=== PATIENT | female | born 1945 | race African-American/Black ===

== ENCOUNTER 2017-07-06 09:35 | Emergency (ER) | payer MEDICARE, OTHER ==
[2017-07-06 09:58] VITALS: RESP 18
--- NOTE | 2017-07-06 11:27 | ED ---
General Adult HPI - General Chief complaint: GI Bleed Stated complaint: Hemrroids Time Seen by Provider: 07/06/17 11:15 Source: patient, RN notes reviewed, old records reviewed Mode of arrival: ambulatory Limitations: no limitations - History of Present Illness Initial comments: This is a 72-year-old female the ER for evaluation pain, anal pain. History of hemorrhoids. Patient states she has worsening hemorrhage today. No treatment at home. Patient denies any abdominal pain. No significant bleeding. Patient here for evaluation regarding hemorrhoids - Related Data Previous Rx's Medication Instructions Recorded Albuterol Inhaler [Ventolin Hfa 1 - 2 puff INHALATION Q4-6H PRN #1 09/24/13 Inhaler] inhaler Albuterol Inhaler [Ventolin Hfa 2 puff INHALATION Q4HR PRN #1 02/03/15 Inhaler] inhaler Allergies Allergy/AdvReac Type Severity Reaction Status Date / Time No Known Allergies Allergy Verified 07/06/17 09:58 Review of Systems ROS Statement: Those systems with pertinent positive or pertinent negative responses have been documented in the HPI. ROS Other: All systems not noted in ROS Statement are negative. Past Medical History Past Medical History: GERD/Reflux Additional Past Medical History / Comment(s): dry eyes History of Any Multi-Drug Resistant Organisms: None Reported Past Surgical History: Hysterectomy, Tubal Ligation Past Psychological History: No Psychological Hx Reported Smoking Status: Former smoker Past Alcohol Use History: None Reported Past Drug Use History: None Reported General Exam - General Exam Comments Initial Comments: 2 nonthrombosed hemorrhoids Limitations: no limitations General appearance: alert, in no apparent distress Head exam: Present: atraumatic, normocephalic, normal inspection Eye exam: Present: normal appearance, PERRL, EOMI. Absent: scleral icterus, conjunctival injection, periorbital swelling ENT exam: Present: normal exam, mucous membranes moist Neck exam: Present: normal inspection. Absent: tenderness, meningismus, lymphadenopathy Respiratory exam: Present: normal lung sounds bilaterally. Absent: respiratory distress, wheezes, rales, rhonchi, stridor Cardiovascular Exam: Present: regular rate, normal rhythm, normal heart sounds. Absent: systolic murmur, diastolic murmur, rubs, gallop, clicks GI/Abdominal exam: Present: soft, normal bowel sounds. Absent: distended, tenderness, guarding, rebound, rigid Extremities exam: Present: normal inspection, full ROM, normal capillary refill. Absent: tenderness, pedal edema, joint swelling, calf tenderness Back exam: Present: normal inspection Neurological exam: Present: alert, oriented X3, CN II-XII intact Psychiatric exam: Present: normal affect, normal mood Skin exam: Present: warm, dry, intact, normal color. Absent: rash Course Vital Signs 07/06/17 09:55 Temperature 97 F L Pulse Rate 94 Respiratory 18 Rate Blood Pressure 151/91 O2 Sat by Pulse 100 Oximetry - Reevaluation(s) Reevaluation #1: 07/06/17 11:56 Local patient regarding treatment of hemorrhoids, patient is okay with therapy and treatment Medical Decision Making - Medical Decision Making 72 female be given symptomatic treatment for hemorrhoids, follow-up with primary care. Patient given laxative, pain control, Disposition Clinical Impression: Hemorrhoids Disposition: HOME SELF-CARE Condition: Good Instructions: Hemorrhoids (ED) Referrals: Bolivar Rangel DO [Primary Care Provider] - 1-2 days
[2017-07-06 12:28] VITALS: BP 144/87; PULSE 96; TEMP 97.2
== END 2017-07-06 12:28 | disposition home or self-care (01) ==
LOC: EC 09:35
DX: K64.9 Unspecified hemorrhoids (principal); Z87.891 Personal history of nicotine dependence; Z98.51 Tubal ligation status; Z90.710 Acquired absence of both cervix and uterus
CPT/HCPCS: 99285

== ENCOUNTER 2017-08-18 11:15 | Emergency (ER) | payer MEDICARE, OTHER ==
[2017-08-18 11:19] VITALS: RESP 20; TEMP 97.8
--- NOTE | 2017-08-18 11:56 | ED ---
Recheck HPI - General Chief Complaint: Recheck/Abnormal Lab/Rx Stated Complaint: MED REFILL Time Seen by Provider: 08/18/17 11:37 Source: patient, RN notes reviewed Mode of arrival: ambulatory Limitations: no limitations - History of Present Illness Initial Comments: 72-year-old female presents to the emergency department for medication refill. Patient states that she occasionally has taken tramadol for pain. She states that she's had 10 tablets since beginning of June states that she just needs a few more. She has no specific complaints. Patient denies any chest pain, shortness of breath, nausea, vomiting diarrhea, constipation, chest pain, headache, dizziness. She states that she does occasionally has aches and pains to her age and she states that she has hemorrhoids or causes discomfort. - Related Data Home Medications Medication Instructions Recorded Confirmed Azelastine HCl [Optivar 0.05% 1 drop BOTH EYES BID 07/06/17 07/06/17 Ophth Soln] Fluticasone Nasal [place] [Flonase 1 - 2 spr EA NOSTRIL DAILY PRN 07/06/17 Nasal [place]] Previous Rx's Medication Instructions Recorded Hydrocortisone [Anusol-Hc] 1 applic RECTAL BID #1 tube 07/06/17 Polyethylene Glycol 3350 [Miralax] 17 gm PO DAILY #14 packet 07/06/17 traMADol HCL [Ultram] 50 mg PO Q6HR PRN #10 tab 07/06/17 traMADol HCl [Ultram] 50 mg PO Q6H PRN #12 tab 08/18/17 Allergies Allergy/AdvReac Type Severity Reaction Status Date / Time No Known Allergies Allergy Verified 08/18/17 11:20 Review of Systems ROS Statement: Those systems with pertinent positive or pertinent negative responses have been documented in the HPI. ROS Other: All systems not noted in ROS Statement are negative. Past Medical History Past Medical History: GERD/Reflux Additional Past Medical History / Comment(s): dry eyes History of Any Multi-Drug Resistant Organisms: None Reported Past Surgical History: Hysterectomy, Tubal Ligation Past Psychological History: No Psychological Hx Reported Smoking Status: Former smoker Past Alcohol Use History: None Reported Past Drug Use History: None Reported General Exam Limitations: no limitations General appearance: alert, in no apparent distress Head exam: Present: atraumatic, normocephalic, normal inspection Eye exam: Present: normal appearance, PERRL, EOMI. Absent: scleral icterus, conjunctival injection, periorbital swelling ENT exam: Present: normal exam, normal oropharynx, mucous membranes moist Neck exam: Present: normal inspection. Absent: tenderness, meningismus, lymphadenopathy Respiratory exam: Present: normal lung sounds bilaterally. Absent: respiratory distress, wheezes, rales, rhonchi, stridor Cardiovascular Exam: Present: regular rate, normal rhythm, normal heart sounds. Absent: systolic murmur, diastolic murmur, rubs, gallop, clicks GI/Abdominal exam: Present: soft, normal bowel sounds. Absent: distended, tenderness, guarding, rebound, rigid Course Vital Signs 08/18/17 11:17 Temperature 97.8 F Pulse Rate 94 Respiratory 20 Rate Blood Pressure 194/95 O2 Sat by Pulse 100 Oximetry Medical Decision Making - Medical Decision Making 9-year-old female presented for refill of tramadol. She has had 10 tablets filled June. Patient will be given 12 Tablets in the emergency room and discharged. Disposition Clinical Impression: Encounter for medication refill, Hemorrhoids Disposition: HOME SELF-CARE Condition: Stable Instructions: Tramadol (By mouth) Additional Instructions: Please return to the Emergency Department if symptoms worsen or any other concerns. Prescriptions: traMADol HCl [Ultram] 50 mg PO Q6H PRN #12 tab PRN Reason: Pain Is patient prescribed a controlled substance at d/c from ED?: Yes If prescribed controlled substance>3 days was MAPS reviewed?: No When asked, does pt state using other controlled substances?: No Referrals: Bolivar Rangel DO [Primary Care Provider] - 1-2 days Time of Disposition: 11:56
[2017-08-18 12:02] VITALS: BP 142/95; PULSE 96
== END 2017-08-18 12:03 | disposition home or self-care (01) ==
LOC: EC 11:15
DX: Z76.0 Encounter for issue of repeat prescription (principal); K64.9 Unspecified hemorrhoids; Z87.891 Personal history of nicotine dependence; Z79.899 Other long term (current) drug therapy
CPT/HCPCS: 99281

== ENCOUNTER 2017-08-31 09:24 | Emergency (ER) | payer MEDICARE ==
--- NOTE | 2017-08-31 10:29 | ED ---
General Adult HPI - General Chief complaint: Recheck/Abnormal Lab/Rx Stated complaint: Med Refill Time Seen by Provider: 08/31/17 10:07 Source: patient, RN notes reviewed, old records reviewed Mode of arrival: ambulatory Limitations: no limitations - History of Present Illness Initial comments: 72-year-old female presenting for medication refill. She is currently prescribed tramadol which she takes for pain. She also states that those helped improve her urinary frequency. Denies any new pain complaints. Denies fever or chills. Denies nausea or vomiting. Denies chest pain or shortness of breath. She complains urinary frequency and occasional incontinence. She is going out of town and would like this medication refilled. - Related Data Home Medications Medication Instructions Recorded Confirmed Fluticasone Nasal [place] [Flonase 1 - 2 spr EA NOSTRIL DAILY PRN 07/06/17 Nasal [place]] Previous Rx's Medication Instructions Recorded Cephalexin [Keflex] 500 mg PO Q12HR #14 cap 08/31/17 traMADol HCL [Ultram] 50 mg PO Q6HR PRN 3 Days #12 tab 08/31/17 Allergies Allergy/AdvReac Type Severity Reaction Status Date / Time No Known Allergies Allergy Verified 08/31/17 10:46 Review of Systems ROS Statement: Those systems with pertinent positive or pertinent negative responses have been documented in the HPI. ROS Other: All systems not noted in ROS Statement are negative. Past Medical History Past Medical History: GERD/Reflux Additional Past Medical History / Comment(s): dry eyes History of Any Multi-Drug Resistant Organisms: None Reported Past Surgical History: Hysterectomy, Tubal Ligation Past Psychological History: No Psychological Hx Reported Smoking Status: Former smoker Past Alcohol Use History: None Reported Past Drug Use History: None Reported General Exam Limitations: no limitations General appearance: alert, in no apparent distress Head exam: Present: atraumatic, normocephalic Eye exam: Present: normal appearance, PERRL, EOMI ENT exam: Present: normal exam Neck exam: Present: normal inspection. Absent: tenderness, meningismus Respiratory exam: Present: normal lung sounds bilaterally. Absent: respiratory distress Cardiovascular Exam: Present: regular rate, normal rhythm GI/Abdominal exam: Present: soft. Absent: distended, tenderness Extremities exam: Present: normal inspection. Absent: full ROM, tenderness Back exam: Present: normal inspection. Absent: full ROM, tenderness Neurological exam: Present: alert, oriented X3, CN II-XII intact. Absent: motor sensory deficit Psychiatric exam: Present: normal affect, normal mood Skin exam: Present: warm, dry, intact Course Vital Signs 08/31/17 09:53 Temperature 97.6 F Pulse Rate 75 Respiratory 16 Rate Blood Pressure 134/84 O2 Sat by Pulse 98 Oximetry Medical Decision Making - Medical Decision Making 72-year-old female presented for refill of tramadol before she goes out of town. She also did complain of some urinary frequency. Urinalysis is obtained. These results indicate 30 RBCs and 5 white cells. This may represent cystitis with small amount of hemorrhage. Patient has no flank pain. No pelvic pain. But she is complaining of urinary frequency. This will be treated awaiting culture results. Patient's tramadol will also be refilled. - Lab Data Lab Results 08/31/17 Range/Units 10:16 Urine Color Yellow Urine Appearance Clear (Clear) Urine pH 6.0 (5.0-8.0) Ur Specific [place] 1.023 (1.001-1.035) Urine Protein 1+ H (Negative) Urine Glucose (UA) Negative (Negative) Urine Ketones Negative (Negative) Urine Blood Small H (Negative) Urine Nitrite Negative (Negative) Urine Bilirubin Negative (Negative) Urine Urobilinogen 2.0 (<2.0) mg/dL Ur Leukocyte Esterase Small H (Negative) Urine RBC 30 H (0-5) /hpf Urine WBC 5 (0-5) /hpf Ur Squamous Epith Cells <1 (0-4) /hpf Urine Mucus Rare H (None) /hpf Disposition Clinical Impression: Encounter for medication refill, Cystitis Disposition: HOME SELF-CARE Condition: Good Instructions: Urinary Traction Infection in Older Adults (ED) Prescriptions: Cephalexin [Keflex] 500 mg PO Q12HR #14 cap traMADol HCL [Ultram] 50 mg PO Q6HR PRN 3 Days #12 tab PRN Reason: Pain Is patient prescribed a controlled substance at d/c from ED?: No Referrals: Bolivar Rangel DO [Primary Care Provider] - 1-2 days Time of Disposition: 10:55
[2017-08-31 10:46] LABS: Appearance,Urine Clear (Clear); Bilirubin,Urine Negative (Negative); Blood,Urine Small (Negative); Color,Urine Yellow; Glucose,Urine (UA) Negative (Negative); Ketones,Urine Negative (Negative); Leukocyte Esterase,Urine Small (Negative); Mucus,Urine Rare /hpf; Nitrite,Urine Negative (Negative); Protein,Urine 1+ (Negative); RBC,Urine 30 /hpf (0-5); Specific Gravity,Urine 1.023 (1.001-1.035); Squamous Epithelial Cell,Urine <1 /hpf (0-4); WBC,Urine 5 /hpf (0-5)
[2017-08-31 11:26] VITALS: BP 124/78; PULSE 72; RESP 18; TEMP 97.9
== END 2017-08-31 11:16 | disposition home or self-care (01) ==
LOC: EC 09:24
DX: N30.90 Cystitis, unspecified without hematuria (principal); Z76.0 Encounter for issue of repeat prescription; Z87.891 Personal history of nicotine dependence
CPT/HCPCS: 81001; 87086; 99283

== ENCOUNTER 2017-11-17 12:38 | Inpatient (IN) | payer MEDICARE, OTHER ==
--- NOTE | 2017-11-17 13:06 | ED ---
General Adult HPI - General Chief complaint: Psychiatric Symptoms Stated complaint: dementia Time Seen by Provider: 11/17/17 12:51 Source: patient, family, RN notes reviewed, old records reviewed Mode of arrival: wheelchair Limitations: altered mental status - History of Present Illness Initial comments: This is a 72-year-old female the ER for evaluation. Patient's brought in by family for evaluation of altered mental state and possible psychiatric evaluation. Patient suffers unable to give history, patient cannot answer questions appropriately. Per patient's family patient was by herself, has been incontinent of stool not eating not drinking not taking care of her apartment of her house. Patient does live alone. She has no family checking on her. Patient has not seen over a year, not taking any medications on a regular basis. - Related Data Home Medications Medication Instructions Recorded Confirmed No Known Home Medications 11/17/17 11/17/17 Allergies Allergy/AdvReac Type Severity Reaction Status Date / Time No Known Allergies Allergy Verified 11/17/17 14:07 Review of Systems ROS Statement: Those systems with pertinent positive or pertinent negative responses have been documented in the HPI. ROS Other: All systems not noted in ROS Statement are negative. Past Medical History Past Medical History: GERD/Reflux Additional Past Medical History / Comment(s): dry eyes, organic mental disorder History of Any Multi-Drug Resistant Organisms: None Reported Past Surgical History: Hysterectomy, Tubal Ligation Past Psychological History: Depression Smoking Status: Former smoker Past Alcohol Use History: None Reported Past Drug Use History: None Reported General Exam Limitations: altered mental status General appearance: alert, in no apparent distress Head exam: Present: atraumatic, normocephalic, normal inspection Eye exam: Present: normal appearance, PERRL, EOMI. Absent: scleral icterus, conjunctival injection, periorbital swelling ENT exam: Present: normal exam, mucous membranes moist Neck exam: Present: normal inspection. Absent: tenderness, meningismus, lymphadenopathy Respiratory exam: Present: normal lung sounds bilaterally. Absent: respiratory distress, wheezes, rales, rhonchi, stridor Cardiovascular Exam: Present: regular rate, normal rhythm, normal heart sounds. Absent: systolic murmur, diastolic murmur, rubs, gallop, clicks GI/Abdominal exam: Present: soft, normal bowel sounds. Absent: distended, tenderness, guarding, rebound, rigid Extremities exam: Present: normal inspection, full ROM, normal capillary refill. Absent: tenderness, pedal edema, joint swelling, calf tenderness Back exam: Present: normal inspection Neurological exam: Present: alert, oriented X3, CN II-XII intact Psychiatric exam: Present: normal affect, normal mood Skin exam: Present: warm, dry, intact, normal color. Absent: rash Course Vital Signs 11/17/17 11/17/17 12:39 17:27 Temperature 98.3 F 97.1 F L Pulse Rate 91 81 Respiratory 18 15 Rate Blood Pressure 103/71 128/68 O2 Sat by Pulse 99 100 Oximetry - Reevaluation(s) Reevaluation #1: 11/17/17 20:05 Patient is medically clear for psych and seen by psychiatry who states they have no recommendations regarding patient's treatment Reevaluation #2: 11/17/17 20:05 Family again at bedside after long discussion with family, and patient becoming very aggressive with both staff and family patient is given mild local sedation EKG Findings - EKG Comments: EKG Findings:: EKG shows normal sinus rhythm rate of 70, OR 152, QRS 84, QTC 453 Medical Decision Making - Medical Decision Making 72 female the ER with complicated dementia, significant exasperation of severe dementia, unable to take care of herself, patient is living in the house that is not states, and cleaned, patient lives alone. Patient is altered here in the emergency room, unable conversation with patient secondary to severe altered mental state. - Lab Data Result diagrams: 11/17/17 13:30 11/17/17 13:30 Lab Results 11/17/17 11/17/17 11/17/17 Range/Units 13:30 13:30 13:30 WBC 7.9 (3.8-10.6) k/uL RBC 4.47 (3.80-5.40) m/uL Hgb 13.0 (11.4-16.0) gm/dL Hct 36.8 (34.0-46.0) % MCV 82.4 (80.0-100.0) fL MCH 29.0 (25.0-35.0) pg MCHC 35.2 (31.0-37.0) g/dL RDW 13.3 (11.5-15.5) % Plt Count 247 (150-450) k/uL Neutrophils % 66 % Lymphocytes % 24 % Monocytes % 6 % Eosinophils % 2 % Basophils % 0 % Neutrophils # 5.2 (1.3-7.7) k/uL Lymphocytes # 1.9 (1.0-4.8) k/uL Monocytes # 0.4 (0-1.0) k/uL Eosinophils # 0.1 (0-0.7) k/uL Basophils # 0.0 (0-0.2) k/uL PT (9.0-12.0) sec INR (<1.2) Sodium 142 (137-145) mmol/L Potassium 3.8 (3.5-5.1) mmol/L Chloride 105 (98-107) mmol/L Carbon Dioxide 25 (22-30) mmol/L Anion Gap 12 mmol/L BUN 32 H (7-17) mg/dL Creatinine 0.90 (0.52-1.04) mg/dL Est GFR (CKD-EPI)AfAm 75 (>60 ml/min/1.73 sqM) Est GFR (CKD-EPI)NonAf 65 (>60 ml/min/1.73 sqM) Glucose 81 (74-99) mg/dL Calcium 9.6 (8.4-10.2) mg/dL Total Bilirubin 4.8 H (0.2-1.3) mg/dL AST 44 H (14-36) U/L ALT 30 (9-52) U/L Alkaline Phosphatase 45 (38-126) U/L Total Creatine Kinase 587 H (30-135) U/L CK-MB (CK-2) 4.2 H* (0.0-2.4) ng/mL CK-MB (CK-2) Rel Index 0.7 Total Protein 7.3 (6.3-8.2) g/dL Albumin 4.3 (3.5-5.0) g/dL Lipase 233 (23-300) U/L Urine Color Urine Appearance (Clear) Urine pH (5.0-8.0) Ur Specific [place] (1.001-1.035) Urine Protein (Negative) Urine Glucose (UA) (Negative) Urine Ketones (Negative) Urine Blood (Negative) Urine Nitrite (Negative) Urine Bilirubin (Negative) Urine Urobilinogen (<2.0) mg/dL Ur Leukocyte Esterase (Negative) Urine RBC (0-5) /hpf Urine WBC (0-5) /hpf Urine Bacteria (None) /hpf Hyaline Casts (0-2) /lpf Urine Mucus (None) /hpf Salicylates <1.0 mg/dL Urine Opiates Screen (NotDetected) Ur Oxycodone Screen (NotDetected) Urine Methadone Screen (NotDetected) Ur Propoxyphene Screen (NotDetected) Acetaminophen <10.0 ug/mL Ur Barbiturates Screen (NotDetected) Phenytoin <3.0 ug/mL Valproic Acid <10.0 ug/mL Carbamazepine <3.0 ug/mL U Tricyclic Antidepress (NotDetected) Ur Phencyclidine Scrn (NotDetected) Ur Amphetamines Screen (NotDetected) U Methamphetamines Scrn (NotDetected) U Benzodiazepines Scrn (NotDetected) Urine Cocaine Screen (NotDetected) U Marijuana (THC) Screen (NotDetected) Serum Alcohol <10 mg/dL 11/17/17 11/17/17 Range/Units 13:30 15:35 WBC (3.8-10.6) k/uL RBC (3.80-5.40) m/uL Hgb (11.4-16.0) gm/dL Hct (34.0-46.0) % MCV (80.0-100.0) fL MCH (25.0-35.0) pg MCHC (31.0-37.0) g/dL RDW (11.5-15.5) % Plt Count (150-450) k/uL Neutrophils % % Lymphocytes % % Monocytes % % Eosinophils % % Basophils % % Neutrophils # (1.3-7.7) k/uL Lymphocytes # (1.0-4.8) k/uL Monocytes # (0-1.0) k/uL Eosinophils # (0-0.7) k/uL Basophils # (0-0.2) k/uL PT 11.2 (9.0-12.0) sec INR 1.2 H (<1.2) Sodium (137-145) mmol/L Potassium (3.5-5.1) mmol/L Chloride (98-107) mmol/L Carbon Dioxide (22-30) mmol/L Anion Gap mmol/L BUN (7-17) mg/dL Creatinine (0.52-1.04) mg/dL Est GFR (CKD-EPI)AfAm (>60 ml/min/1.73 sqM) Est GFR (CKD-EPI)NonAf (>60 ml/min/1.73 sqM) Glucose (74-99) mg/dL Calcium (8.4-10.2) mg/dL Total Bilirubin (0.2-1.3) mg/dL AST (14-36) U/L ALT (9-52) U/L Alkaline Phosphatase (38-126) U/L Total Creatine Kinase (30-135) U/L CK-MB (CK-2) (0.0-2.4) ng/mL CK-MB (CK-2) Rel Index Total Protein (6.3-8.2) g/dL Albumin (3.5-5.0) g/dL Lipase (23-300) U/L Urine Color [place] Urine Appearance Clear (Clear) Urine pH 5.5 (5.0-8.0) Ur Specific [place] 1.025 (1.001-1.035) Urine Protein 1+ H (Negative) Urine Glucose (UA) Negative (Negative) Urine Ketones 2+ H (Negative) Urine Blood Moderate H (Negative) Urine Nitrite Negative (Negative) Urine Bilirubin 1+ H (Negative) Urine Urobilinogen 4.0 (<2.0) mg/dL Ur Leukocyte Esterase Negative (Negative) Urine RBC 4 (0-5) /hpf Urine WBC 1 (0-5) /hpf Urine Bacteria Rare H (None) /hpf Hyaline Casts 7 H (0-2) /lpf Urine Mucus Rare H (None) /hpf Salicylates mg/dL Urine Opiates Screen Not Detected (NotDetected) Ur Oxycodone Screen Not Detected (NotDetected) Urine Methadone Screen Not Detected (NotDetected) Ur Propoxyphene Screen Not Detected (NotDetected) Acetaminophen ug/mL Ur Barbiturates Screen Not Detected (NotDetected) Phenytoin ug/mL Valproic Acid ug/mL Carbamazepine ug/mL U Tricyclic Antidepress Not Detected (NotDetected) Ur Phencyclidine Scrn Not Detected (NotDetected) Ur Amphetamines Screen Not Detected (NotDetected) U Methamphetamines Scrn Not Detected (NotDetected) U Benzodiazepines Scrn Not Detected (NotDetected) Urine Cocaine Screen Not Detected (NotDetected) U Marijuana (THC) Screen Not Detected (NotDetected) Serum Alcohol mg/dL - Radiology Data Radiology results: report reviewed (CT brain C-spine negative can acute disease , chest x-ray pelvis x-ray negative for traumatic injury), image reviewed Disposition Clinical Impression: Altered mental state, Dehydration, Failure to thrive Disposition: ADMITTED IP TO THIS [facility] Condition: Undetermined Is patient prescribed a controlled substance at d/c from ED?: No Referrals: Bolivar Rangel DO [Primary Care Provider] - 1-2 days
[2017-11-17] MEDS ORDERED: LORazepam 2 MG/ML INJ IV STA ×2 (13:10→19:30)
[2017-11-17] MEDS ORDERED: SODIUM CHLORIDE 0.9% 1,000 ML IV STA (13:10)
[2017-11-17 14:13] LABS: Basophils % (A) 0 %; Eosinophils # (A) 0.1 k/uL (0-0.7); Eosinophils % (A) 2 %; HCT 36.8 % (34.0-46.0); INR 1.2 (<1.2); Lymphocytes # (A) 1.9 k/uL (1.0-4.8); Lymphocytes % (A) 24 %; MCHC 35.2 g/dL (31.0-37.0); MCV 82.4 fL (80.0-100.0); Mean Platelet Volume 7.3; Monocytes # (A) 0.4 k/uL (0-1.0); Monocytes % (A) 6 %; Neutrophils # (A) 5.2 k/uL (1.3-7.7); Neutrophils % (A) 66 %; Platelet Count 247 k/uL (150-450); Prothrombin Time 11.2 sec (9.0-12.0); RBC 4.47 m/uL (3.80-5.40); RDW 13.3 % (11.5-15.5); WBC 7.9 k/uL (3.8-10.6)
[2017-11-17 14:19] LABS: ALT 30 U/L (9-52); AST 44 U/L (14-36); Acetaminophen <10.0 ug/mL; Albumin 4.3 g/dL (3.5-5.0); Alcohol <10 mg/dL; Alkaline Phosphatase 45 U/L (38-126); Anion Gap 12 mmol/L; Blood Urea Nitrogen 32 mg/dL (7-17); Calcium 9.6 mg/dL (8.4-10.2); Carbamazepine (Tegretol) <3.0 ug/mL; Carbon Dioxide 25 mmol/L (22-30); Chloride 105 mmol/L (98-107); Glucose 81 mg/dL (74-99); Lipase 233 U/L (23-300); Phenytoin (Dilantin) <3.0 ug/mL; Potassium 3.8 mmol/L (3.5-5.1); Salicylate <1.0 mg/dL; Sodium 142 mmol/L (137-145); Total Bilirubin 4.8 mg/dL (0.2-1.3); Total Protein 7.3 g/dL (6.3-8.2)
[2017-11-17 14:22] LABS: Valproic Acid (Depakene) <10.0 ug/mL
--- NOTE | 2017-11-17 14:59 | XR ---
EXAMINATION TYPE: XR chest 2V DATE OF EXAM: 11/17/2017 COMPARISON: 02/03/2015 HISTORY: Shortness of breath TECHNIQUE: Frontal and lateral views of the chest are obtained. FINDINGS: Scattered senescent parenchymal changes noted. Hyperinflation compatible with COPD. No evidence for infiltrate. No evidence for atelectasis. Heart size is stable. Mediastinal structures are stable and grossly unremarkable. No evidence for hilar prominence. Degenerative changes dorsal spine. IMPRESSION: 1. No evidence for acute pulmonary disease.
[2017-11-17 15:02] LABS: Creatine Kinase MB 4.2 ng/mL (0.0-2.4)
--- NOTE | 2017-11-17 15:10 | CT ---
EXAMINATION TYPE: CT brain antonio zimmerman con DATE OF EXAM: 11/17/2017 COMPARISON: Pain HISTORY: Dementia CT DLP: 1352 mGycm Automated exposure control for dose reduction was used. TECHNIQUE: CT scan of the head and cervical spine are performed without contrast. FINDINGS: There is no acute intracranial hemorrhage, mass effect, or midline shift identified. Carmen ventricular low attenuation is nonspecific. No midline shift. Calvarium intact. Cervical spine is visualized in its entirety from C1 through upper thoracic levels and demonstrates s atisfactory alignment without evidence of acute fracture or dislocation. Prevertebral soft tissue ap pears within normal limits. The C1-C2 articulation is unremarkable. Assessment spinal canal limited by artifact and noncontrast technique. Multilevel facet arthropathy noted. There is a 2 mm right upper lobe apical pulmonary nodule. 1 mm subpleural pulmonary nodule on the lef t posteriorly. IMPRESSION: 1. There is no acute fracture or dislocation evident in the cervical spine. 2. No acute intracranial hemorrhage, mass effect, or midline shift is seen. Degenerative and nonspeci fic white matter changes most typical remote microvascular ischemia. 3. 2 mm apical right upper lobe nodule. Six-month follow-up could be obtained to confirm stability.
--- NOTE | 2017-11-17 15:16 | XR ---
EXAMINATION TYPE: XR pelvis AP view DATE OF EXAM: 11/17/2017 CLINICAL HISTORY: Pelvic pain after trauma. TECHNIQUE: A single AP view of the pelvis is obtained. COMPARISON: None. FINDINGS: There is no gross acute fracture/dislocation evident in the pelvis. However evaluation of the left hip is suboptimal due to patient positioning. Moderate femoral acetabular arthropathy is see n as joint space narrowing, acetabular sclerosis and subchondral cysts. There is generalized osseous demineralization. Fecal stasis is seen within the rectum that is dilated up to 8.8 cm. The overlying soft tissue appears unremarkable. IMPRESSION: 1. Suboptimal evaluation of the left hip due to patient positioning. Although there is a low suspicio n for left hip fracture dedicated left hip radiographs are recommended to ensure no underlying fractu re. 2. Generalized osseous demineralization and moderate femoral acetabular arthropathy. 3. Rectal fecal stasis with rectal dilatation up to 8.8 cm.
[2017-11-17 15:44] LABS: Appearance,Urine Clear (Clear); Bacteria,Urine Rare /hpf; Bilirubin,Urine 1+ (Negative); Blood,Urine Moderate (Negative); Color,Urine Orange; Glucose,Urine (UA) Negative (Negative); Hyaline Casts,Urine 7 /lpf (0-2); Ketones,Urine 2+ (Negative); Leukocyte Esterase,Urine Negative (Negative); Mucus,Urine Rare /hpf; Nitrite,Urine Negative (Negative); PH, Urine 5.5 (5.0-8.0); Protein,Urine 1+ (Negative); RBC,Urine 4 /hpf (0-5); Specific Gravity,Urine 1.025 (1.001-1.035); WBC,Urine 1 /hpf (0-5)
[2017-11-17 15:55] LABS: Amphetamine Screen,Urine Not Detected (NotDetected); Barbiturate Screen,Urine Not Detected (NotDetected); Benzodiazepines Screen,Urine Not Detected (NotDetected); Cocaine Screen,Urine Not Detected (NotDetected); Methadone Screen, Urine Not Detected (NotDetected); Opiate Screen,Urine Not Detected (NotDetected); Oxycodone Screen, Urine Not Detected (NotDetected); Phencyclidine Screen,Urine Not Detected (NotDetected); Tricyclic Antidepressant,Urine Not Detected (NotDetected); Urn Cannabinoid Scrn Not Detected (NotDetected)
[2017-11-17] MEDS ORDERED: SODIUM CHLORIDE 0.9% 1,000 ML IV ONE (20:02)
--- NOTE | 2017-11-17 22:42 | HP ---
HISTORY AND PHYSICAL CHIEF COMPLAINT: Change in mental status, dementia. HISTORY OF PRESENT ILLNESS: This 72-year-old woman with a past medical history of multiple medical problems including history of dementia, history of GERD, memory impairment, history of depression, being followed by Dr. Magali Rangel in the outpatient setting apparently living by herself. The caregivers who are the granddaughters provide the food to her. The patient today was found to have some change in mental status and the patient was restless and patient was taken to [facility] and was admitted for further evaluation and treatment. Ativan was given in the ER. The patient is drowsy at this time. Patient was unable to give a coherent history. Most of the history was taken from discussion with the staff, review of chart and discussion with the ER physician and discussed with the guardians. PAST MEDICAL HISTORY: History of dementia, GERD, memory impairment, depression. MEDICATIONS: Prior to admission include home medications are none. ALLERGIES: None. Family history, social history and review of systems could not be taken because of the patient's change in mental status. PHYSICAL EXAM: Patient is drowsy and stuporous. Confused. Pulse 71, blood pressure 130/70, respiration 17, temperature 97.2, pulse ox 98% on room air. HEENT is conjunctivae normal. Oral mucosa moist. Neck is no jugular venous distention. No carotid bruit. No lymph node enlargement. Cardiovascular system: S1, S2 muffled. Respiratory: Breath sounds diminished in the bases. No rhonchi. No crackles. ABDOMEN: Soft, nontender. No mass palpable. Legs no edema and no swelling. NERVOUS SYSTEM: Higher functions as mentioned earlier. Moves all 4 limbs. Otherwise full exam is not possible. Skin: No ulcer, rash or bleeding. Lymphatics: No lymph nodes palpable in the neck, axillae or groin. Joints: No active deformity. LAB STUDIES: CBC within normal limits and INR is 1.2. Total bilirubin is 4.8, AST is 44, and creatine kinase 587. ASSESSMENT: 1. Change in mental status, possibly metabolic encephalopathy. 2. Dementia. 3. Increased bilirubin. 4. Increased creatinine kinase. 5. History of gastroesophageal reflux disease. 6. History of depression. RECOMMENDATIONS AND DISCUSSION: In this 72-year-old woman who presented with multiple complex medical issues, we will monitor the patient closely. Continue the current medications, management and symptomatic treatment. Otherwise, neurology consultation. Psychiatric consultation. CT scan has been done. Also recommend repeat labs, especially the bilirubin. I would also obtain ultrasound of the liver in the morning. Otherwise PT/OT evaluation. Social work consult to consult for evaluation of the home situation and showing the patient's safety. Prognosis guarded. Further recommendations to follow. MMODL / IJN: [id number] /
[2017-11-17] MEDS: SODIUM CHLORIDE 0.9% 1,000 ML IV SCH (22:46)
[2017-11-17] MEDS: LORazepam 2 MG/ML INJ IV PRN (23:52)
[2017-11-18] MEDS: LORazepam 2 MG/ML INJ IV PRN ×2 (06:46→16:50)
[2017-11-18 07:59] LABS: ALT 28 U/L (9-52); AST 33 U/L (14-36); Albumin 3.4 g/dL (3.5-5.0); Alkaline Phosphatase 39 U/L (38-126); Anion Gap 11 mmol/L; Blood Urea Nitrogen 21 mg/dL (7-17); Calcium 8.8 mg/dL (8.4-10.2); Carbon Dioxide 23 mmol/L (22-30); Chloride 109 mmol/L (98-107); Glucose 76 mg/dL (74-99); Potassium 3.5 mmol/L (3.5-5.1); Sodium 143 mmol/L (137-145)
[2017-11-18 08:39] LABS: Basophils % (A) 1 %; Eosinophils # (A) 0.2 k/uL (0-0.7); Eosinophils % (A) 4 %; HCT 34.6 % (34.0-46.0); HGB 11.6 gm/dL (11.4-16.0); Lymphocytes # (A) 1.6 k/uL (1.0-4.8); Lymphocytes % (A) 28 %; MCH 28.1 pg (25.0-35.0); MCHC 33.6 g/dL (31.0-37.0); MCV 83.6 fL (80.0-100.0); Mean Platelet Volume 7.9; Monocytes # (A) 0.4 k/uL (0-1.0); Monocytes % (A) 7 %; Neutrophils # (A) 3.4 k/uL (1.3-7.7); Neutrophils % (A) 59 %; Platelet Count 224 k/uL (150-450); RBC 4.14 m/uL (3.80-5.40); WBC 5.8 k/uL (3.8-10.6)
[2017-11-18] MEDS ORDERED: NA PHOS,M-B/NA PHOS,DI-BA 133 ML ENEMA RECTAL PRN (09:58)
[2017-11-18] MEDS: HEPARIN SODIUM,PORCINE 5,000 UNIT/ML 1 ML VIAL SQ SCH ×2 (10:14→21:54)
[2017-11-18] MEDS: PANTOPRAZOLE 40 MG TABLET PO SCH (10:14)
[2017-11-18] MEDS: FOLIC ACID 1 MG TAB PO SCH ×2 (10:15→10:33)
[2017-11-18] MEDS: MULTIVITAMINS, THERA 1 EACH TAB PO SCH ×2 (10:15→10:33)
[2017-11-18] MEDS: THIAMINE 100 MG TAB PO SCH ×2 (10:15→10:33)
[2017-11-18] MEDS: SODIUM CHLORIDE 0.9% 1,000 ML IV SCH (10:17)
[2017-11-18] MEDS: DOCUSATE 100 MG CAP PO SCH ×2 (10:19→21:53)
[2017-11-18 11:42] LABS: T4, Free (Free Thyroxine) 1.54 ng/dL (0.78-2.19)
--- NOTE | 2017-11-18 14:38 | US ---
EXAMINATION TYPE: US carotid duplex BILAT DATE OF EXAM: 11/18/2017 COMPARISON: NONE CLINICAL HISTORY: AMS. Altered mental status, somewhat difficult exam, pt talking during exam EXAM MEASUREMENTS: RIGHT: Peak Systolic Velocity (PSV) cm/sec ----- Right CCA: 44.4 ----- Right ICA: 65.3 ----- Right ECA: 64.5 ICA/CCA ratio: 1.5 RIGHT: End Diastole cm/sec ----- Right CCA: 14.7 ----- Right ICA: 24.3 ----- Right ECA: 9.5 LEFT: Peak Systolic Velocity (PSV) cm/sec ----- Left CCA: 49.8 ----- Left ICA: 57.5 ----- Left ECA: 87.8 ICA/CCA ratio: 1.2 LEFT: End Diastole cm/sec ----- Left CCA: 16.3 ----- Left ICA: 20.9 ----- Left ECA: 13.1 VERTEBRALS (direction of flow): Right Vertebral: Antegrade Left Vertebral: Antegrade Rhythm: Normal Intimal thickening bilaterally with no evidence of significant stenosis IMPRESSION: Mild degree of grayscale atheromatous plaquing with no sonographically evident hemodynam ically significant stenosis within either visualized carotid arterial system.
--- NOTE | 2017-11-18 14:41 | P.CN ---
Psychiatric Consult - . Consult date: 11/18/17 Consult:: 11/18/17 14:22 Identification: Patient is a 72-year-old female was brought to the emergency room by family members for a psychiatric evaluation due to increasing confusion Reason for Consult: altered mental status History of Present Illness: Patient's chart is reviewed, I had discussed this patient with the emergency psychiatric services nurse last evening when she evaluated the patient in the emergency room. At that time the patient was not agitated nor is she expressing any suicidal ideation there is no evidence of threatening or hostile behavior. Patient is seen in her room today no family members are present. Patient is lying in bed in no acute distress responds to her name and makes intermittent eye contact. Patient is a poor historian. Patient states she is in the hospital for bleeding. She states that she lives alone but her grandchildren come to her house to do their homework. She states that she continues to drive a car as cooking and cleaning for herself. Patient reports no other complaints. Past Psychiatric History: Unaware and unable to obtain Past Medical/Surgical History: Per the chart the patient has a history of GERD and is status post hysterectomy, patient states that she does not go to see a doctor. Family History: Unable to obtain Social History: Patient states that she was born in [place] both of her parents are she could not tell me how many siblings she had but was able to tell me that she had finished high school. Patient states that she was for 3 years and is and has 6 children. She states she lives alone in her own home and cares for her own cooking and cleaning without assistance. Substance Use History: Unable to obtain Mental status: Appearance/Attitude: Patient is sitting in a hospital bed in no acute distress makes intermittent eye contact and is cooperative Behavior: Patient does not display any psychomotor agitation although she appears somewhat slowed it is unclear to me if this is due to medication she received earlier this morning. Speech/Language: Patient responds to questions in a very soft voice and at times is difficult to understand Thought Process: Patient's responses were brief, non-elaborative and at times difficult to understand because the patient was not speaking clearly Thought Content: Patient does not appear to be responding to internal stimuli Suicidal/Homicidal Ideation: Patient denied current suicidal or homicidal ideation Sensorium/Cognition: Patient was alert but appeared slightly drowsy, she was oriented to person she knew she was in a hospital and that the city was [place]. 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 Mood/Affect: Patient's mood was pleasant and her affect slightly blunted Insight/Judgment: Patient's insight and judgment are impaired Assessment: Per the information was given last evening by the EPS nurse the patient lives in her own home and does have a guardian it is unclear how much assistance the patient has in her home he has no family members were present last evening for today when I saw the patient. Patient has a diagnosis of dementia, etiology unknown. Patient's BUN was elevated she had ketones in her urine, I suspect the patient was dehydrated and had not been eating properly at home. Patient has received Ativan IV in the emergency room on 2 occasions and recently received 2 mg IV at 646 this morning, this could be why the patient appeared slightly groggy with me and was speaking in such a soft voice and at times difficult to understand that she was mumbling. Diagnosis: Neurocognitive disorder, etiology unknown Plan: Patient already has a guardian, patient has evidence of a neurocognitive disorder and I would recommend that the patient not be in an unsupervised living situation. Family's concerns regarding her increased confusion recently could certainly be due to being dehydrated, poor nutrition and/or progression of her dementia. I read that the social sciences lecturer spoken with the guardian and that an extended care facility is the discharge plan. I would be cautious in the use of IV Ativan in someone with a neurocognitive disorder so as not to increase her confusion and disorientation. Behavioral interventions to reorient the patient should be used while she is in the hospital, should she become agitated a low dose of either Risperdal 0.5 mg or Seroquel 25 mg can be used on an as-needed basis. Patient does not require an inpatient psychiatric admission. I will sign off the case. 11/18/17 14:33
--- NOTE | 2017-11-18 14:52 | US ---
EXAMINATION TYPE: US liver DATE OF EXAM: 11/18/2017 COMPARISON: NONE CLINICAL HISTORY: high bili. Abnormal labs EXAM MEASUREMENTS: Liver Length: 17.4 cm Gallbladder Wall: 0.3 cm CBD: 0.4 cm Right Kidney: 10.1 x 4.7 x 5.6 cm Pancreas: 3.5 mm duct visualized, tail obscured by overlying bowel gas Liver: Upper limits of normal for size, hyperechoic lesion right anterior lobe= 1.6 x 0.9 x 1.3 cm Gallbladder: Distended with probable sludge Evidence for sonographic Farooq's sign: No CBD: wnl Right Kidney: Hyperechoic lesion mid= 1.8 x 2.1 x 1.8 cm IMPRESSION: 1. Pancreatic ductal dilatation raises suspicion for underlying pancreatic neoplasm although no sonog raphic neoplasm is identified. Further evaluation with MRCP with and without contrast is recommended to evaluate both the pancreatic duct and the pancreatic parenchyma. 2. Hyperechoic hepatic lesion and right renal lesion that can also be evaluated with the above recomm ended MRI. These could relate to a hemangioma and angiomyolipoma respectively although a hepatic lesi on could also relate to an adenoma, focal nodular hyperplasia or less likely hepatocellular carcinoma and the renal lesion could less likely relate to a fat-containing renal cell carcinoma. 3. Probable tumefactive biliary sludge seen dependently. No common bile duct dilatation or sonographi c evidence of acute cholecystitis.
--- NOTE | 2017-11-18 18:58 | PN ---
PROGRESS NOTE DATE OF SERVICE: 11/18/2017. This 72-year-old woman who was admitted in mental status, metabolic encephalopathy, also has significant dementia. The patient is being closely monitored at this time. PT/OT is also evaluating the patient. Psychiatry has seen the patient and recommended Risperdal or Seroquel on a p.r.n. basis. The patient was dehydrated also on admission. The patient is given IV fluids at this time. Creatine kinase is also elevated. The patient also had elevated insulin. No chest pain. No palpitations. PAST MEDICAL HISTORY: Reviewed. PHYSICAL EXAM: Patient is stuporous. Pulse 74, blood pressure 142/71, respirations 16, temperature 97.4, pulse ox 100% on room air. HEENT: Conjunctivae normal. NECK: No jugular venous distention. CARDIOVASCULAR: S1, S2 muffled. RESPIRATORY: Breath sounds diminished in the bases. No rhonchi. No crackles. ABDOMEN: Soft, nontender. LEGS: No edema. NERVOUS SYSTEM: No focal deficits. LABS: CBC within normal limits. Sodium 142, potassium 3.5. TSH is 9.010. UA shows 2+ ketones. ASSESSMENT: 1. Change in mental status with possibly acute metabolic encephalopathy, multifactorial. 2. Dehydration with prerenal acute renal failure, present on admission, mild. 3. Increased BUN, present on admission. 4. Dementia. 5. Increased bilirubin. 6. Increased creatine kinase. 7. History of gastroesophageal reflux disease. 8. History of depression. RECOMMENDATIONS AND DISCUSSION: I recommend to continue current medical management and continue symptomatic treatment. Otherwise I would recommend continue to monitor, PT/OT evaluation, adequate hydration, DVT prophylaxis. The patient is on IV fluids 0.9 at 75 mL/hour. We will continue to monitor. Prognosis guarded because of multiple complex medical issues. Further recommendations to follow. MMODL / IJN: [id number] /
--- NOTE | 2017-11-19 01:02 | P.CNNES ---
History of Present Illness Consult date: 11/18/17 Requesting physician: Dioni Szymanski Reason for Consult: Altered mental status Chief complaint: Altered mental status /Confusion History of Present Illness: Neurology is consulting on a 72 year of female for altered mental status. patient was brought to the ED by family for concerns related to mentation possible psychiatric evaluation. Patient is unable to give history, will Patient has recently been incontinent unable to manage activities of daily living while independently living alone. Patient has no family check on her. Patient denies seeing a physician in over a year and denies taking any medication. On contact, patient was alert and oriented 1, bedside sitter in the room, no acute distress. Patient could not answer questions appropriately. Patient often mumbled, strayed off- topic and had to be redirected. Patient appeared very confused. Patient does have a known underlying etiology of dementia previously. Other possible concerns involve dehydration as well as malnutrition given the patients thin body habitus. No family were present in the room. This gave further difficulty with attempting to investigate the patient's past medical history. Review of Systems symptoms not noted in HPI are negative Past Medical History Past Medical History: Dementia, GERD/Reflux, Memory Impairment Additional Past Medical History / Comment(s): poor historian- history provided by pt's grand daughter /legal guardian sarai. dry eyes, recently having incont of stool History of Any Multi-Drug Resistant Organisms: None Reported Past Surgical History: Hysterectomy, Tubal Ligation Past Anesthesia/Blood Transfusion Reactions: No Reported Reaction Additional Past Anesthesia/Blood Transfusion Reaction / Comment(s): per grand daughter no blood transfusions that she is aware of. Smoking Status: Never smoker - Past Family History Mother Family Medical History: Dementia Father History Unknown: Yes Medications and Allergies Home Medications Medication Instructions Recorded Confirmed Type No Known Home Medications 11/17/17 11/17/17 History Allergies Allergy/AdvReac Type Severity Reaction Status Date / Time No Known Allergies Allergy Verified 11/17/17 14:07 Physical Examination - Vital Signs Vital Signs: Vital Signs Temp Pulse Resp BP Pulse Ox 11/18/17 05:58 97.5 F L 74 16 142/71 100 Intake and Output 11/18/17 11/18/17 11/19/17 14:59 22:59 06:59 Intake Total 600 300 Balance 600 300 Intake: IV 300 Sodium Chloride 0.9% 1, 300 000 ml @ 75 mls/hr IV . [id number] [facility] Rx#:[id number] Intake, IV Titration 600 Amount Sodium Chloride 0.9% 1, 600 000 ml @ 75 mls/hr IV . [id number] [facility] Rx#:[id number] Other: Voiding Method Incontinent # Voids 1 # Bowel Movements 1 General appearance: Alert & oriented x1, no apparent distress. Head: Atraumatic, normocephalic, normal inspection Eyes: Well appearance, PERRLA, EOMI. Absent scleral icterus, conjunctival injection, nystagmus, periorbital swelling. Ear, nose and throat: Normal exam, mucous membranes moist Neck: Normal inspection, absent tenderness, lymphadenopathy. Respiratory: No increased work of breathing Cardiovascular: Regular rate, rhythm GI/abdominal: Normal bowel sounds, nondistended, no tenderness, no guarding, no rebound, no rigidity. Extremities: full range of motion, normal capillary refill, no tenderness, pedal edema joint swelling, calf tenderness. Neurological: cranial nerves II through XII intactpartially able to be assessed, patient would not fully comply. no lateralizing weakness no seizure activity noted on physical exam no pronator drift and no nystagmus. patient would not cooperate with the rest of the neurological assessment Psychological: Mood and affect appropriate for setting. Results carotid Dopplerno hemodynamically CT headmicrovascular ischemia - Laboratory Findings CBC and BMP: 11/18/17 06:50 11/18/17 06:50 Abnormal Lab Findings: Abnormal Labs 11/17/17 11/17/17 11/17/17 13:30 13:30 13:30 INR 1.2 H Chloride BUN 32 H Total Bilirubin 4.8 H AST 44 H Total Creatine Kinase 587 H CK-MB (CK-2) 4.2 H* Total Protein Albumin TSH Urine Protein Urine Ketones Urine Blood Urine Bilirubin Urine Bacteria Hyaline Casts Urine Mucus 11/17/17 11/18/17 15:35 06:50 INR Chloride 109 H BUN 21 H Total Bilirubin 4.0 H AST Total Creatine Kinase CK-MB (CK-2) Total Protein 6.0 L Albumin 3.4 L TSH 9.010 H Urine Protein 1+ H Urine Ketones 2+ H Urine Blood Moderate H Urine Bilirubin 1+ H Urine Bacteria Rare H Hyaline Casts 7 H Urine Mucus Rare H Assessment and Plan (1) Dementia Current Visit: Yes Status: Acute Code(s): F03.90 - UNSPECIFIED DEMENTIA WITHOUT BEHAVIORAL DISTURBANCE SNOMED Code(s): 20025244 (2) Altered mental state Narrative/Plan: Patient does have a known history of dementia however the exact underlying etiology as well as the extent at baseline is not currently known limited information is available as no family were present. Patient has been assessed by psychiatri does concur that there is at least s component to the patient's symptoms. Other etiologies include failure to thrive/malnutrition. Patient CT brain and carotid Doppler only reflected minimal findings compared to the rather significant dementia/memory loss that was noted on physical exam. Patient can undergo further testing in the outpatient setting for neurocognitive functioning at a later date. for now, continue neurological checks as Ordered. Notify neurology with any new status changes. Additional laboratory bloodwork will be ordered including B12, TSH, T4 for correctable contributory etiologies. it is noted that the about T4 was normal. Primary team may need to address hypothyroidism as one underlying correctable etiology. Current Visit: Yes Status: Acute Code(s): R41.82 - ALTERED MENTAL STATUS, UNSPECIFIED SNOMED Code(s): 717557151 (3) Failure to thrive Current Visit: Yes Status: Acute Code(s): VYC2824 - SNOMED Code(s): 01498005 Plan: STATUS: Neurology will continue to provide updates as warranted. Contact our office with any questions I have discussed the plan of care with the physician prior to implementation and he agrees with the plan as implemented.
[2017-11-19] MEDS: SODIUM CHLORIDE 0.9% 1,000 ML IV SCH ×3 (05:48→20:32)
[2017-11-19 06:44] LABS: Basophils % (A) 1 %; Eosinophils # (A) 0.3 k/uL (0-0.7); Eosinophils % (A) 5 %; HCT 37.2 % (34.0-46.0); HGB 12.7 gm/dL (11.4-16.0); Lymphocytes # (A) 2.2 k/uL (1.0-4.8); Lymphocytes % (A) 34 %; MCH 28.9 pg (25.0-35.0); MCHC 34.2 g/dL (31.0-37.0); MCV 84.3 fL (80.0-100.0); Mean Platelet Volume 7.3; Monocytes # (A) 0.3 k/uL (0-1.0); Monocytes % (A) 5 %; Neutrophils # (A) 3.5 k/uL (1.3-7.7); Neutrophils % (A) 55 %; Platelet Count 245 k/uL (150-450); RBC 4.41 m/uL (3.80-5.40); RDW 13.4 % (11.5-15.5); WBC 6.4 k/uL (3.8-10.6)
[2017-11-19 07:11] LABS: ALT 29 U/L (9-52); AST 31 U/L (14-36); Albumin 3.5 g/dL (3.5-5.0); Alkaline Phosphatase 44 U/L (38-126); Anion Gap 7 mmol/L; Blood Urea Nitrogen 12 mg/dL (7-17); Calcium 8.6 mg/dL (8.4-10.2); Carbon Dioxide 26 mmol/L (22-30); Chloride 108 mmol/L (98-107); Glucose 84 mg/dL (74-99); Potassium 3.4 mmol/L (3.5-5.1); Sodium 141 mmol/L (137-145); Total Bilirubin 3.6 mg/dL (0.2-1.3); Total Protein 6.3 g/dL (6.3-8.2)
[2017-11-19] MEDS: HEPARIN SODIUM,PORCINE 5,000 UNIT/ML 1 ML VIAL SQ SCH ×2 (07:24→20:32)
[2017-11-19] MEDS: DOCUSATE 100 MG CAP PO SCH ×2 (07:24→21:38)
[2017-11-19] MEDS: PANTOPRAZOLE 40 MG TABLET PO SCH (07:24)
[2017-11-19] MEDS ORDERED: Potassium Replacement Protocol 1 EACH MISC MISCELLANE PRN (09:36)
--- NOTE | 2017-11-19 09:58 | P.PN ---
Subjective Progress Note Date: 11/19/17 Principal diagnosis: Altered mental status Patient off floor for testing on rounding. Will attempt to see patient on Objective - Vital Signs Vital signs: Vital Signs Temp 97.3 F L 11/18/17 23:00 Pulse 69 11/18/17 23:00 Resp 16 11/18/17 23:00 BP 139/69 11/18/17 23:00 Pulse Ox 93 L 11/18/17 23:00 Intake & Output 11/18/17 11/19/17 11/19/17 18:59 06:59 18:59 Intake Total 600 900 Balance 600 900 Intake: IV 900 Sodium Chloride 0.9% 1, 900 000 ml @ 75 mls/hr IV . [id number] [facility] Rx#:[id number] Intake, IV Titration 600 Amount Sodium Chloride 0.9% 1, 600 000 ml @ 75 mls/hr IV . [id number] [facility] Rx#:[id number] Other: Voiding Method Incontinent Diaper Incontinent # Voids 1 # Bowel Movements 3 1 - Labs CBC & Chem 7: 11/19/17 06:02 11/19/17 06:02 Labs: Abnormal Lab Results - Last 24 Hours (Table) 11/19/17 Range/Units 06:02 Potassium 3.4 L (3.5-5.1) mmol/L Chloride 108 H (98-107) mmol/L Total Bilirubin 3.6 H (0.2-1.3) mg/dL Assessment and Plan (1) Dementia Current Visit: Yes Status: Acute Code(s): F03.90 - UNSPECIFIED DEMENTIA WITHOUT BEHAVIORAL DISTURBANCE SNOMED Code(s): 03940473 (2) Altered mental state Current Visit: Yes Status: Acute Code(s): R41.82 - ALTERED MENTAL STATUS, UNSPECIFIED SNOMED Code(s): 121370534 (3) Failure to thrive Current Visit: Yes Status: Acute Code(s): WIS5630 - SNOMED Code(s): 33559072
[2017-11-19] MEDS: POTASSIUM CHLORIDE ER 20 MEQ TAB.ER PO SCH ×2 (10:06→11:22)
[2017-11-19] MEDS: FOLIC ACID 1 MG TAB PO SCH (11:22)
[2017-11-19] MEDS: MULTIVITAMINS, THERA 1 EACH TAB PO SCH (11:22)
[2017-11-19] MEDS: THIAMINE 100 MG TAB PO SCH (11:22)
[2017-11-19] MEDS: LORazepam 2 MG/ML INJ IV PRN (18:17)
--- NOTE | 2017-11-19 21:26 | PN ---
PROGRESS NOTE DATE OF SERVICE: 11/19/2017 PRESENTING COMPLAINT: Confusion. INTERVAL HISTORY: The patient presented with acute confusion with underlying dementia. The patient was seen by Psychiatry. It is possible the patient had some delirium. I spoke to the nurse today. The patient is currently sleeping after getting a sedative. The patient has been eating well. REVIEW OF SYSTEMS: Cannot be done, as patient is currently sleeping. Checked again after a couple hours. Patient was still sleeping. EXAMINATION: Temperature 98.6, pulse 91, respirations 20, blood pressure 114/83, pulse ox 99% on room air. GENERAL APPEARANCE: Lying in bed, somnolent. EYES: Unable to assess, as patient is rather somnolent. NECK: JVD unable to assess. Mass not palpable. RESPIRATORY: Effort normal. LUNGS: Slightly decreased breath sounds. CARDIOVASCULAR: First and second sounds normal. No edema. ABDOMEN: Soft, nontender. Liver and spleen not palpable. PSYCHIATRY: Unable to assess. The patient is rather somnolent. INVESTIGATIONS: White count 6.4, hemoglobin 12.7. Potassium 3.4, BUN and creatinine are normal. Ammonia less than 9. Carotid Doppler: No critical stenosis. Liver ultrasound shows pancreatic ductal dilatation, hyperechoic hepatic lesion, some biliary sludge. ASSESSMENT: 1. Acute delirium, could be from dehydration, present on admission with elevated BUN. 2. Dehydration. Patient's BUN was 32, now down to 12. 3. Cognitive impairment, probably from underlying dementia. 4. Abnormal TSH, likely from sick euthyroid syndrome. The patient clinically does not appear to be hypothyroid. 5. Gastroesophageal reflux disease. PLAN: The patient's oral intake is improved. Will discontinue the saline. Will start the patient on Seroquel tonight. Other medications to continue. Prognosis guarded. Full. MMODL / IJN: [id number] /
[2017-11-19] MEDS: QUEtiapine 25 MG TAB PO SCH (21:40)
[2017-11-20 06:17] VITALS: RESP 16
[2017-11-20 09:21] LABS: ALT 25 U/L (9-52); AST 25 U/L (14-36); Alkaline Phosphatase 35 U/L (38-126); Anion Gap 5 mmol/L; Blood Urea Nitrogen 7 mg/dL (7-17); Calcium 8.5 mg/dL (8.4-10.2); Carbon Dioxide 26 mmol/L (22-30); Chloride 113 mmol/L (98-107); Glucose 79 mg/dL (74-99); Potassium 3.6 mmol/L (3.5-5.1); Sodium 144 mmol/L (137-145); Total Bilirubin 2.3 mg/dL (0.2-1.3); Total Protein 5.5 g/dL (6.3-8.2)
[2017-11-20 09:22] LABS: Basophils % (A) 0 %; Eosinophils # (A) 0.3 k/uL (0-0.7); Eosinophils % (A) 8 %; HCT 32.9 % (34.0-46.0); HGB 11.8 gm/dL (11.4-16.0); Lymphocytes # (A) 1.5 k/uL (1.0-4.8); Lymphocytes % (A) 38 %; MCH 29.3 pg (25.0-35.0); MCHC 35.8 g/dL (31.0-37.0); MCV 81.8 fL (80.0-100.0); Mean Platelet Volume 8.1; Monocytes # (A) 0.3 k/uL (0-1.0); Monocytes % (A) 6 %; Neutrophils # (A) 1.8 k/uL (1.3-7.7); Neutrophils % (A) 46 %; Platelet Count 218 k/uL (150-450); RBC 4.02 m/uL (3.80-5.40)
[2017-11-20] MEDS: HEPARIN SODIUM,PORCINE 5,000 UNIT/ML 1 ML VIAL SQ SCH ×2 (09:53→20:03)
[2017-11-20] MEDS: PANTOPRAZOLE 40 MG TABLET PO SCH (09:53)
[2017-11-20] MEDS: DOCUSATE 100 MG CAP PO SCH (09:54)
[2017-11-20] MEDS: THIAMINE 100 MG TAB PO SCH (13:24)
[2017-11-20] MEDS: FOLIC ACID 1 MG TAB PO SCH (13:24)
[2017-11-20] MEDS: MULTIVITAMINS, THERA 1 EACH TAB PO SCH (13:24)
--- NOTE | 2017-11-20 18:33 | PN ---
PROGRESS NOTE DATE OF SERVICE: November 20, 2017. PRESENTING COMPLAINT: Confused. INTERVAL HISTORY: Patient presented with what appears to be delirium. The patient has underlying dementia. The patient did sleep rather well last night with Seroquel. The patient ate rather well today. Has been up to the bathroom twice. Confused at times. Resting currently. REVIEW OF SYSTEMS: Cannot be done as patient is resting and does not want to be disturbed. MEDICATIONS: Current medications reviewed that include Seroquel 12.5 at night. PHYSICAL EXAMINATION: VITAL SIGNS: Temperature 97.5, pulse 98, respiration 16, blood pressure 120/71, pulse ox 98% on room air. GENERAL APPEARANCE: Lying in bed, eyes closed. Eyes unable to assess. The patient is somnolent. NECK: JVD unable to assess. Mass not palpable. RESPIRATORY effort normal. LUNGS: Slightly decreased breath sounds. CARDIOVASCULAR: 1st and 2nd sounds normal. No edema. ABDOMEN: Soft, nontender. Liver and spleen not palpable. PSYCHIATRY: Unable to assess. The patient is somnolent. INVESTIGATIONS: White count 4, hemoglobin 11.8, potassium 3.6, BUN and creatinine is normal. ASSESSMENT: 1. Acute delirium could be from dehydration present on admission and elevated BUN. 2. Dehydration. BUN was elevated to 32 on presentation. 3. 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 4. Abnormal TSH, likely from sick euthyroid syndrome. 5. Gastroesophageal reflux disease. 6. The patient has a legal guardian, Gladys is also the granddaughter. PLAN: We will initiate sleep cycle. Sleep cycle hygiene. The patient has been tolerating a diet. 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 MMODL / IJN: [id number] /
[2017-11-20] MEDS: QUEtiapine 25 MG TAB PO SCH (20:02)
[2017-11-21] MEDS: PANTOPRAZOLE 40 MG TABLET PO SCH (08:43)
[2017-11-21] MEDS: HEPARIN SODIUM,PORCINE 5,000 UNIT/ML 1 ML VIAL SQ SCH ×3 (08:43→20:18)
[2017-11-21] MEDS: FOLIC ACID 1 MG TAB PO SCH (12:47)
[2017-11-21] MEDS: THIAMINE 100 MG TAB PO SCH (12:47)
[2017-11-21] MEDS: MULTIVITAMINS, THERA 1 EACH TAB PO SCH (12:47)
--- NOTE | 2017-11-21 15:04 | EEG ---
ELECTROENCEPHALOGRAM REPORT DATE OF SERVICE: 11/19/2017 REASON FOR TESTING: Altered mental status. DESCRIPTION OF THE PROCEDURE: This EEG was performed using a 21 channel digital electroencephalograph, following international 10-20 system. DESCRIPTION OF THE RECORDING: From the beginning of the tracing, and with patient's eyes closed, the background rhythm was mostly consisting of 8 Hz alpha frequency in the posterior occipital leads. No obvious asymmetry is seen. Occasional movement and muscle artifacts are seen. Photic stimulation was performed with no driving response seen. No epileptiform discharges were noticed. No pathological waves were elicited. The patient remains awake throughout the tracing. Hyperventilation was not performed. No epileptiform discharges were seen. INTERPRETATION: This awake EEG can be considered within normal limits. There was no asymmetry seen. No epileptiform discharges were noticed. The absence of epileptiform discharges does not rule out the diagnosis of epilepsy; therefore clinical correlation is recommended. ESTRELLA / CARMEN: [id number] /
--- NOTE | 2017-11-21 17:01 | PN ---
PROGRESS NOTE DATE OF SERVICE: 11/21/17 PRESENTING COMPLAINT: Tired. INTERVAL HISTORY: This patient presented with acute delirium, has underlying dementia. The patient tolerating a diet. Pending placement. Otherwise comfortable. Baseline confused. REVIEW OF SYSTEMS: Was attempted for constitutional, cardiovascular, GI, pulmonary; relevant findings as above. CURRENT MEDICATIONS: Reviewed that include Seroquel. PHYSICAL EXAMINATION: Temperature 98, pulse 70, respirations 16, blood pressure 144/66, pulse ox 99% on room air. GENERAL APPEARANCE: Lying in bed comfortable, awake. EYES: Pupils equal. Conjunctivae normal. HEENT: External appearance of nose and ears normal. Oral cavity normal. NECK: JVD not raised. Mass not palpable. Respiratory effort normal. LUNGS: Clear. CARDIOVASCULAR: First and second sounds, no edema. ABDOMEN: Soft, nontender. Liver and spleen not palpable. PSYCHIATRY: Patient can answer some questions, otherwise pleasantly confused. INVESTIGATIONS: White count 4, hemoglobin 11.8, potassium 3.6, BUN and creatinine are normal. ASSESSMENT: 1. Acute delirium could be from dehydration, present on admission. 2. Dehydration, present on admission, now improved. 3. Cognitive impairment, severe from underlying dementia, likely Alzheimer's type, late onset. 4. Abnormal TSH, likely from sick euthyroid syndrome. 5. Gastroesophageal reflux disease. 6. The patient's granddaughter, Geraldine, is legal guardian and granddaughter. 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 Awaiting placement. MMODL / IJN: [id number] /
[2017-11-21] MEDS: QUEtiapine 25 MG TAB PO SCH (20:04)
[2017-11-22] MEDS: HEPARIN SODIUM,PORCINE 5,000 UNIT/ML 1 ML VIAL SQ SCH ×2 (10:14→20:36)
[2017-11-22] MEDS: MULTIVITAMINS, THERA 1 EACH TAB PO SCH (12:26)
[2017-11-22] MEDS: QUEtiapine 25 MG TAB PO SCH (20:37)
--- NOTE | 2017-11-23 04:26 | PN ---
PROGRESS NOTE DATE OF SERVICE: 11/22/2017 PRESENTING COMPLAINT: Tired. INTERVAL HISTORY: Patient presented with acute delirium, underlying dementia. She did sleep well again last night. Tolerating a diet. Awaiting placement. No other issues. REVIEW OF SYSTEMS: Done for constitutional, cardiovascular, GI, pulmonary; relevant findings above. CURRENT MEDICATIONS: Include Seroquel. PHYSICAL EXAMINATION: VITAL SIGNS: Temperature 98.3, pulse 94, respiration 16, blood pressure 120/75, pulse ox 98% on room air. GENERAL APPEARANCE: Lying in bed comfortable. EYES: Pupils equal, conjunctivae normal. HEENT: External appearance of nose and ears normal. Oral cavity normal. NECK: JVD not raised. Mass not palpable. RESPIRATORY effort normal. LUNGS: Clear. CARDIOVASCULAR: 1st and 2nd sounds normal. No edema. ABDOMEN: Soft, nontender. Liver and spleen not palpable. PSYCHIATRY: Awake, does answer some questions. INVESTIGATIONS: No blood work from today. ASSESSMENT: 1. Acute delirium could be from dehydration present on admission now improved. 2. Dehydration present on admission, resolved. 3. Severe cognitive impairment from advanced Alzheimer's dementia, late onset type with abnormal behavior. 4. Abnormal TSH, likely from sick euthyroid syndrome. 5. Gastroesophageal reflux disease. 6. The patient's granddaughter Laurie is the legal guardian. PLAN: Continue current medication and treatment plan. Awaiting placement. MMODL / IJN: [id number] /
[2017-11-23] MEDS: HEPARIN SODIUM,PORCINE 5,000 UNIT/ML 1 ML VIAL SQ SCH ×2 (07:55→22:32)
[2017-11-23 09:04] LABS: ALT 34 U/L (9-52); AST 39 U/L (14-36); Albumin 3.3 g/dL (3.5-5.0); Alkaline Phosphatase 37 U/L (38-126); Anion Gap 8 mmol/L; Blood Urea Nitrogen 14 mg/dL (7-17); Calcium 8.8 mg/dL (8.4-10.2); Carbon Dioxide 26 mmol/L (22-30); Chloride 108 mmol/L (98-107); Glucose 128 mg/dL (74-99); Potassium 3.6 mmol/L (3.5-5.1); Sodium 142 mmol/L (137-145); Total Bilirubin 0.9 mg/dL (0.2-1.3); Total Protein 6.1 g/dL (6.3-8.2)
[2017-11-23] MEDS: MULTIVITAMINS, THERA 1 EACH TAB PO SCH (10:54)
[2017-11-23 12:32] VITALS: BMI 23.0
[2017-11-23] MEDS: QUEtiapine 25 MG TAB PO SCH (22:32)
--- NOTE | 2017-11-23 22:48 | PN ---
PROGRESS NOTE DATE OF SERVICE: 11/23/2017 PRESENTING COMPLAINT: Tired. INTERVAL HISTORY: Patient presented with acute delirium; has underlying dementia. Has responded very well to Seroquel. Sleep cycle is maintained. Tolerating a diet, able answer simple questions. Pending placement. REVIEW OF SYSTEMS: Done for constitutional, cardiovascular, GI, pulmonary; relevant findings as above. CURRENT MEDICATIONS: Current medications include Seroquel. PHYSICAL EXAMINATION: Temperature 97.8, pulse 94, respiration 16, blood pressure 116/74, pulse ox 95% on room air. GENERAL APPEARANCE: Lying in bed, awake, comfortable. EYES: Pupils equal. Conjunctivae normal. HEENT: External appearance of nose and ears normal. Oral cavity normal. NECK: JVD not raised. Mass not palpable. RESPIRATORY: Effort normal. Lungs are clear. CARDIOVASCULAR: First and second sounds normal. No edema. ABDOMEN: Soft, non-tender. Liver and spleen not palpable. PSYCHIATRY: Awake. Answering some simple questions; otherwise rather confused at baseline. INVESTIGATIONS: Potassium 3.6. BUN are creatinine are normal. ASSESSMENT: 1. Acute delirium; could be from dehydration; present on admission, now improved. 2. Dehydration, present on admission, resolved. 3. Severe cognitive impairment from advanced Alzheimer's dementia, late onset type, with normal behavior. 4. Abnormal TSH, likely from sick euthyroid syndrome. 5. Gastroesophageal reflux disease. 6. Patient's granddaughter Conner is her legal guardian. PLAN: Spoke to social work nurse Keisha Cohen, who is looking at placement. MMODL / IJN: [id number] /
[2017-11-24] MEDS: HEPARIN SODIUM,PORCINE 5,000 UNIT/ML 1 ML VIAL SQ SCH ×2 (02:11→08:08)
[2017-11-24] MEDS: MULTIVITAMINS, THERA 1 EACH TAB PO SCH (13:03)
[2017-11-24 15:38] VITALS: BP 127/73; PULSE 94; TEMP 97.1
--- NOTE | 2017-11-24 15:52 | DS ---
DISCHARGE SUMMARY DATE OF ADMISSION: 11/17/2017 DATE OF DISCHARGE: November 24, 2017. FINAL DIAGNOSES: 1. Acute delirium could be from dehydration present on admission. 2. Dehydration present on admission, resolved. 3. Severe cognitive impairment from advanced Alzheimer's dementia late onset type. 4. Abnormal TSH likely from sick euthyroid syndrome. 5. Gastroesophageal reflux disease. 6. Patient's granddaughter Laurie is the legal guardian. HOSPITAL COURSE: This patient with Alzheimer's dementia presented with acute confusion felt to be from dehydration. Responded well to IV fluids. BUN came down nicely. The patient's sleep cycle is totally disturbed. Responded well to Seroquel. Now patient sleeps well at night. Tolerating a diet. Comfortable, able to answer simple questions. On exam, lungs are clear. Cardiovascular 1st and 2nd sounds normal. The patient is able to answer simple questions. INVESTIGATIONS: EEG did not show any seizure activity. Carotid Doppler did not show any critical stenosis. It may be noted that the patient has had abnormal findings on the ultrasound including pancreatic duct dilatation, though there was no evidence of any neoplasm. There was also hyperechoic hepatic lesion, could be hemangioma or angiomyolipoma. DISPOSITION: [facility] off [address]. DISCHARGE MEDICATIONS: 1. Multivitamin 1 tablet p.o. daily at noon. 2. Seroquel 12.5 mg p.o. q.h.s. Follow up with Dr. Cedillo in 4 weeks. Follow up with Dr. Bolivar Rangel praquel. CONSULTATIONS: Dr. Cedillo from Neurology, Dr. Crow from Psychiatry. MMODL / IJN: [id number] /
== END 2017-11-24 18:45 | DRG 640 ==
LOC: EC 12:38 → EEVIPCON 12:38 → 5MS5E 20:04
PROVIDERS: ADMIT Hospitalist; ATTEND Hospitalist
DX: E86.0 Dehydration (principal); G93.41 Metabolic encephalopathy; N17.9 Acute kidney failure, unspecified; E07.81 Sick-euthyroid syndrome; F02.80 Dementia in other diseases classified elsewhere, unspecified severity, without behavioral disturbance, psychotic disturbance, mood disturbance, and anxiety; G30.1 Alzheimer's disease with late onset; R62.7 Adult failure to thrive; Z87.891 Personal history of nicotine dependence; Z90.710 Acquired absence of both cervix and uterus; Z98.51 Tubal ligation status; Z60.2 Problems related to living alone
CPT/HCPCS: 36415; 70450; 71046; 72125; 72170; 76705; 80053; 80156; 80164; 80185; 80306; 80320; 81001; 82140; 82550; 82553; 82607; 83520; 83690; 84439; 84443; 85025; 85610; 93005; 93880; 95819; 96361; 96374; 96376; 99285